=== PATIENT | male | born 1990 | race Caucasian/White ===

== ENCOUNTER 2020-11-28 22:13 | Emergency (ER) | payer OTHER, SELFPAY ==
[2020-11-28 22:18] VITALS: BP 140/84; PULSE 85; RESP 14; TEMP 36.7; O2SAT 98
--- NOTE | 2020-11-28 23:46 | ED_ITS ---
HPI - Wound/Laceration General Chief Complaint: Wound/Laceration Stated Complaint: Laceration Time Seen by Provider: 11/28/20 23:29 Source: patient Mode of arrival: ambulatory Limitations: no limitations History of Present Illness HPI narrative: 30-year-old male After catching 3 catfish tonight he was cutting a leader with his knife and poked himself through his pant leg in the anterior right thigh Small laceration, no neuro symptoms, no arterial bleeding Related Data Allergies Allergy/AdvReac Type Severity Reaction Status Date / Time No Known Allergies Allergy Verified 01/01/15 20:15 Review of Systems Musculoskeletal: Musculoskeletal: Denies muscle cramps Neurologic: Denies focal weakness and Denies numbness Hematologic/Lymphatic: Hematologic/Lymphatic: Denies easy bleeding PMFSH Family History Family History (Updated 12/11/15 @ 23:21 by DOCTOR UNKNOWN) Mother Patient's mother is in good health Father Patient's father is in good health Sibling Patient's sister is in good health Social History Social History Smoking status: Never smoker Alcohol intake: never Gender identity (if verbalized by the patient): Male Exam Const: General: healthy appearing, no acute distress and alert Orientation/consciousness: patient oriented x3 Resp: Effort & Inspection: normal respiratory effort and not labored Neuro: General: patient oriented x3 and moves all extremities Extrem: Other: 1 to 2 cm laceration mid anterior thigh over the medial quad riceps, no foreign body, gently probed with handle of forceps to a depth of not quite 2 cm Course Vital Signs Vital signs: Vital Signs Temperature 36.7 C 11/28/20 22:18 Pulse Rate 85 11/28/20 22:18 Respiratory Rate 14 11/28/20 22:18 Blood Pressure 140/84 11/28/20 22:18 Pulse Oximetry 98 11/28/20 22:18 Temperature 36.7 C 11/28/20 22:18 Pulse Rate 85 11/28/20 22:18 Respiratory Rate 14 11/28/20 22:18 Blood Pressure 140/84 11/28/20 22:18 Pulse Oximetry 98 11/28/20 22:18 Procedures Laceration Laceration 1: Date: 11/28/20 Time: 23:25 Site: lower extremity Side (If applicable): right Size (cm): 2 Description: linear Depth: simple, single layer Local Anesthetic: lidocaine 1% and with epi Pre-repair: wound explored and irrigated ====== Skin Level ====== Skin layer closed with: nylon Size (cm): 3-0 Number of sutures: 2 Technique: simple, interrupted ====== Subcutaneous Layer ====== ====== Muscle Layer ====== ====== Tendon Layer ====== Discharge Plan Discharge Clinical Impression: Laceration of thigh Patient Disposition: Home, Self-Care Condition: Improved Instructions: Care For Your Stitches (ED) Additional Instructions: Stitches can be removed in 7 to 10 days Follow-up/Referrals: PHYSICIAN,[employer] [Primary Care Provider] - Navid Sullivan MD [Physician] - (7 to 10 days for suture removal, alternately one of the [facility])
[2020-11-29] MEDS: TETANUS,DIPHTHERIA,AC PERTUSSIS ADULT (0.5 ML) BOOSTRIX IM (00:32)
== END 2020-11-29 00:35 | disposition home or self-care (01) ==
PROVIDERS: Emergency Provider Emergency Medicine
DX: S71.111A Laceration without foreign body, right thigh, initial encounter (principal); W26.0XXA Contact with knife, initial encounter; Z23 Encounter for immunization
CPT/HCPCS: 12001; 90471; 90715; 99282

== ENCOUNTER 2024-02-12 21:53 | Emergency (ER) | payer SELFPAY ==
[2024-02-12 22:14] VITALS: BP 129/72; PULSE 76; RESP 14; TEMP 36.7; O2SAT 100
--- NOTE | 2024-02-13 03:09 | PC.NURSE ---
Patient called to triage area to be taken back to a room; no answer.
--- NOTE | 2024-02-13 03:31 | PC.NURSE ---
Pt called to triage area for 2nd time. No answer
== END 2024-02-13 04:18 | disposition left against medical advice (07) ==
LOC: ANHED 02-13 03:47
DX: R42 Dizziness and giddiness (principal)
CPT/HCPCS: 99199